=== PATIENT | female | born 1940 | race Caucasian/White ===

== ENCOUNTER 2020-05-09 07:18 | Outpatient (CLI) | payer MEDICARE, SELFPAY ==
--- NOTE | ~2020-05-09 | XR_ITS ---
EXAMINATION: XR foot RT standing 2V EXAM DATE: 05/09/2020 08:23 INDICATION: R76.8 - Other specified abnormal immunological findings in serum . TECHNIQUE: Frontal and lateral projections of the right foot standing. Correlation is made to contra lateral foot same date. FINDINGS: There is moderate right-sided pes planus. There is bunion and moderate hallux valgus with mild 1st metatarsophalangeal joint primary osteoarthritis. There is a small inferior calcaneal spur. There are no bony erosions identified. There are no acute fractures or dislocations identified. Ther e is no subcutaneous gas. The soft tissue is unremarkable. There are no radiopaque foreign bodies. IMPRESSION: 1. Right moderate hallux valgus. Bunion. 2. Mild 1st MTP osteoarthritis. 3. Moderate pes planus. 4. Small inferior calcaneal spur. Reviewed, dictated and finalized at location A. SPECIALIST
--- NOTE | ~2020-05-09 | XR_ITS ---
EXAMINATION: XR knee RT min 4V DATE: 05/09/2020 08:23 INDICATION: Other specified abnormal immunological findings in serum. TECHNIQUE: 4 views of right knee were obtained. COMPARISON: None. FINDINGS: There is lateral subluxation of patella. No fracture. There is severe osteoarthritis of pat ellofemoral compartment and mild osteoarthritis of medial and lateral compartments. 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 No knee joint effusion. IMPRESSION: 1. Severe right knee osteoarthritis. Reviewed, dictated and finalized at location A. SITIONAL NURSE
--- NOTE | ~2020-05-09 | XR_ITS ---
EXAMINATION: XR foot LT standing 2V EXAM DATE: 05/09/2020 08:23 INDICATION: R76.8 - Other specified abnormal immunological findings in serum. TECHNIQUE: Frontal and lateral projections of the left foot standing. There is no prior study for c omparison. FINDINGS: There is moderate left-sided hallux valgus, bunion and mild primary osteoarthritis at the 1st MTP joint. There is mild pes planus. There are no bony erosions identified. There are no acute fractures or dislocations identified. There is no subcutaneous gas. The soft tissue is unremarkabl e. There are no radiopaque foreign bodies. IMPRESSION: 1. Left bunion, hallux valgus, 1st MTP osteoarthritis. 2. Mild pes planus. Reviewed, dictated and finalized at location A.
--- NOTE | ~2020-05-09 | XR_ITS ---
EXAMINATION: XR hand BI arthritis min 3V EXAM DATE: 05/09/2020 08:23 INDICATION: R76.8 - Other specified abnormal immunological findings in serum. TECHNIQUE: Right hand frontal, lateral and oblique projections obtained and reviewed. Left hand fron aida, lateral and oblique projections obtained and reviewed. Catchers projection of both hands. There is no prior study for comparison. FINDINGS: Right hand: The 3rd MCP joint appears completely subluxed or dislocated in the volar direction on parish e images, with moderate arthritis at this joint. The subluxation appears to be reduced on the catcher s projection. There is otherwise mild polyarticular MCP and interphalangeal primary osteoarthritis. T here are no bony erosions identified. There are no acute fractures or dislocations identified. The re is no subcutaneous gas. The soft tissue is unremarkable. There are no radiopaque foreign bodies . Left hand: There is mild polyarticular interphalangeal, MCP primary osteoarthritis. There are no bon y erosions identified. There are no acute fractures or dislocations identified. There is no subcutan eous gas. The soft tissue is unremarkable. There are no radiopaque foreign bodies. IMPRESSION: 1. Right 3rd MCP ligamentous laxity suspected with some of the images demonstrating volar subluxatio n/dislocation. Moderate arthritis of this joint. 2. Otherwise mild hand polyarticular bilateral osteoarthritis. Reviewed, dictated and finalized at location A. [employer]ERS IMPRESSION: 1. Right 3rd MCP ligamentous laxity suspected with some of the images demonstr ating volar subluxation/dislocation. Moderate arthritis of this joint. 2. Otherwise mild hand polyarticular bilateral osteoarthritis.
[2020-05-09 08:15] LABS: Alanine Aminotransferase 12 U/L (4-35); Alkaline Phosphatase 100 U/L (38-126); Anion Gap 7 mmol/L (8-16); Aspartate Amino Transferase 22 U/L (14-36); Bilirubin,Total 0.4 mg/dL (0.2-1.3); Blood Urea Nitrogen 20 mg/dL (7-17); CRP 0.7 mg/dL (<1.0); Calcium 9.3 mg/dL (8.4-10.2); Carbon Dioxide 27 mmol/L (22-30); Chloride 107 mmol/L (98-107); Estimated Glomerular Filt Rate 43; Glucose 118 mg/dL (65-105); Potassium 4.4 mmol/L (3.4-5.0); Sodium 141 mmol/L (137-145)
[2020-05-09 08:18] LABS: Complement C3 99 mg/dL (88-165); Hematocrit 38.9 % (37.0-47.0); Hemoglobin 12.7 g/dL (12.0-15.0); Mean Corpuscular HGB Conc 32.6 g/dl (32-36); Mean Corpuscular Hemoglobin 28.6 pg (26-34); Mean Corpuscular Volume 87.6 fl (80-100); Mean Platelet Volume 10.8 fl (7.4-10.4); Platelet Count Result 245 k/mm3 (150-375); Red Blood Count 4.44 M/mm3 (4.2-5.4); Red Cell Distribution Width 15.2 % (11.5-14.5); White Blood Count 8.5 K/mm3 (4.5-10.0)
[2020-05-09 09:25] LABS: Add Urine Microscopic? YES; Appearance Urine Clear (Clear); Bilirubin Urine Negative (Negative); Blood Urine Negative (Negative); Color Urine Yellow (Yellow); Glucose Urine UA Negative (Negative); Ketones Urine Negative (Negative); Leukocyte Esterase Ur Trace LEU/UL (Negative); Mucus Urine Rare /lpf; Nitrate Urine Negative (Negative); Protein Urine Negative (Negative); RBC Urine 0-2 /hpf (0-2); Specific Grav Ur 1.016 (1.001-1.035); Squamous Epithelial Cell Urine Occasional /hpf (Few); Urobilinogen Urine Negative mg/dL (<2.0); WBC Urine 0-3 /hpf
[2020-05-09 11:16] LABS: Erythrocyte Sedimentation Rate 31 mm/hr (0-20)
[2020-05-12 02:27] LABS: Anti Cardio Antibody IgM 78 MPL (<=12); Anti Cardiolipin Antibody IgA <11 APL (<=11); Anti Cardiolipin Antibody IgG 60 GPL (<=14)
[2020-05-12 03:23] LABS: Lupus dRVVT 1:1 Mix Interpreta Not Indicated; Lupus dRVVT Screen 43 sec (<=45); PTT-LA Screen 39 sec (<=40)
[2020-05-12 21:29] LABS: Anti Cyclic Citrullinated Pept <16 Units (<20)
[2020-05-17 10:13] LABS: Myeloperoxidase Antibody 123.8 AI (<1.0)
== END 2020-05-09 07:19 | disposition home or self-care (01) ==
PROVIDERS: PCP Internal Medicine; Visit Provider Internal Medicine
DX: R76.8 Other specified abnormal immunological findings in serum (principal); R76.9 Abnormal immunological finding in serum, unspecified; M19.90 Unspecified osteoarthritis, unspecified site; M19.042 Primary osteoarthritis, left hand; M19.041 Primary osteoarthritis, right hand; M20.11 Hallux valgus (acquired), right foot; M21.611 Bunion of right foot; M19.072 Primary osteoarthritis, left ankle and foot; M19.071 Primary osteoarthritis, right ankle and foot; M21.41 Flat foot [pes planus] (acquired), right foot; M77.31 Calcaneal spur, right foot; M21.42 Flat foot [pes planus] (acquired), left foot; M17.11 Unilateral primary osteoarthritis, right knee
CPT/HCPCS: 36415; 73130; 73564; 73620; 80053; 81001; 85027; 85613; 85652; 85730; 86021; 86140; 86146; 86147; 86160; 86200

== ENCOUNTER 2020-10-18 11:26 | Outpatient (CLI) | payer MEDICARE, SELFPAY ==
[2020-10-18 11:57] LABS: Basophils Absolute Auto 0.1 K/mm3 (0.0-0.1); Basophils Percent Auto 0.9 % (0.2-1.2); Eosinophils Absolute Auto 0.3 K/mm3 (0-0.3); Eosinophils Percent Auto 4.3 % (0-4.4); Hematocrit 36.5 % (37.0-47.0); Hemoglobin 11.7 g/dL (12.0-15.0); Immature Granulocyte Absolute 0.02 K/mm3 (0.00-0.031); Immature Granulocyte Percent A 0.3 % (0-0.5); Lymphocytes Absolute Auto 1.37 K/mm3 (0.9-3.2); Lymphocytes Percent Auto 17.2 % (18.3-44.2); Mean Corpuscular HGB Conc 32.1 g/dl (32-36); Mean Corpuscular Hemoglobin 28.1 pg (26-34); Mean Corpuscular Volume 87.5 fl (80-100); Mean Platelet Volume 10.1 fl (7.4-10.4); Monocytes Percent Auto 12.4 % (2.6-8.5); Neutrophils Absolute Auto 5.2 K/mm3 (1.3-6.7); Neutrophils Percent Auto 64.9 % (45.5-73.1); Platelet Count Result 359 k/mm3 (150-375); Red Blood Count 4.17 M/mm3 (4.2-5.4); Red Cell Distribution Width 14.7 % (11.5-14.5)
[2020-10-18 13:14] LABS: Alanine Aminotransferase 17 U/L (4-35); Albumin Level 4.2 g/dL (3.5-5.1); Alkaline Phosphatase 99 U/L (38-126); Anion Gap 7 mmol/L (8-16); Aspartate Amino Transferase 25 U/L (14-36); Bilirubin,Total 0.4 mg/dL (0.2-1.3); Blood Urea Nitrogen 18 mg/dL (7-17); CRP < 0.5 mg/dL (<1.0); Calcium 9.7 mg/dL (8.4-10.2); Carbon Dioxide 25 mmol/L (22-30); Chloride 108 mmol/L (98-107); Estimated Glomerular Filt Rate 40; Glucose 99 mg/dL (65-110); Potassium 4.6 mmol/L (3.4-5.0); Sodium 140 mmol/L (137-145)
[2020-10-18 13:16] LABS: Complement C3 101 mg/dL (88-165)
[2020-10-18 13:20] LABS: Erythrocyte Sedimentation Rate 47 mm/hr (0-20)
[2020-10-18 16:32] LABS: Creatinine Urine 47.6 mg/dL; Total Protein Urine Random 12 mg/dL; Ur Ttl Prot Creatinine Ratio 0.25 mg/mg (0-0.20)
[2020-10-21 00:46] LABS: Angiotensin Converting Enzyme 21 U/L (9-67)
== END 2020-10-18 11:27 | disposition home or self-care (01) ==
LOC: ANHLAB 11:28
PROVIDERS: PCP Internal Medicine; Visit Provider Internal Medicine
DX: M19.90 Unspecified osteoarthritis, unspecified site (principal); R76.8 Other specified abnormal immunological findings in serum
CPT/HCPCS: 36415; 80053; 82164; 82570; 84156; 85025; 85652; 86021; 86140; 86160